=== PATIENT | male | born 1980 | race Hispanic/Latino ===

== ENCOUNTER 2018-04-08 01:51 | Emergency (ER) | payer OTHER ==
[2018-04-08 02:13] VITALS: BMI 26.4
[2018-04-08] MEDS ORDERED: Sodium Chloride 0.9% 1,000 ML IV STA (02:18)
--- NOTE | 2018-04-08 02:19 | ED PDOC ---
HPI: Abdomen Time Seen by Provider: 04/08/18 02:13 Chief Complaint (Nursing): Abdominal Pain Chief Complaint (Provider): testicular pain History Per: Patient Additional Complaint(s): 37-year-old male presents to emergency department with left testicular pain that started about 2 hours prior to arrival. Patient states the pain woke him up from his sleep. 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 Patient states it feels as if the left testicle is swollen and is very painful to touch. He denies fever or chills, no nausea or vomiting. PMD: none Past Medical History Reviewed: Historical Data, Nursing Documentation, Vital Signs Vital Signs: Last Vital Signs Temp 97.5 F L 04/08/18 02:10 Pulse 80 04/08/18 02:10 Resp 18 04/08/18 02:10 BP 118/75 04/08/18 02:10 Pulse Ox 100 04/08/18 03:40 - Medical History PMH: No Chronic Diseases - Surgical History Other surgeries: surgery for b/l testicular torsion - Family History Family History: States: No Known Family Hx - Living Arrangements Living Arrangements: With Family - Social History Current smoker - smoking cessation education provided: No Alcohol: None Drugs: Denies - Home Medications Home Medications: Ambulatory Orders Medication Instructions Recorded Ibuprofen [Motrin] 600 mg PO Q6 PRN #20 tab 04/08/18 - Allergies Allergies/Adverse Reactions: Allergies Allergy/AdvReac Type Severity Reaction Status Date / Time No Known Allergies Allergy Verified 04/08/18 02:13 Review of Systems ROS Statement: Except As Marked, All Systems Reviewed And Found Negative Constitutional: Negative for: Fever, Chills Respiratory: Negative for: Cough Gastrointestinal: Negative for: Nausea, Vomiting Genitourinary Male: Positive for: Scrotal Pain (left testicular pain and swelling) Physical Exam - Reviewed Nursing Documentation Reviewed: Yes Vital Signs Reviewed: Yes - Physical Exam Appears: Positive for: Well, Non-toxic, No Acute Distress Skin: Positive for: Normal Color. Negative for: Rash Eye Exam: Positive for: Normal appearance Cardiovascular/Chest: Positive for: Regular Rate, Rhythm Respiratory: Positive for: Normal Breath Sounds Gastrointestinal/Abdominal: Positive for: Tenderness (suprapubic). Negative for : Distended, Guarding, Rebound Male Genital Exam: Positive for: epididymal tenderness (left), scrotum tenderness (L), testicular tenderness (L). Negative for: no hernia, bleeding, urethral discharge Back: Positive for: Normal Inspection Extremity: Positive for: Normal ROM Neurologic/Psych: Positive for: Alert, Oriented - Laboratory Results Result Diagrams: 04/08/18 02:55 04/08/18 02:55 Urine dip results: Negative for: Leukocyte Esterase, Blood, Nitrate, Ketones, Glucose, Bilirubin, Protein - ECG O2 Sat by Pulse Oximetry: 100 Pulse Ox Interpretation: Normal - Other Rad Testes US X-Ray: Read By Radiologist X-Ray Interpretation: see below Medical Decision Making Medical Decision Makin37 year old with left testicular pain Plan: CBC CMP Urine dip IVF Testes US IV toradol US: FINDINGS: Right testicle: The right testicle is small compared to the left and without Doppler flow obtained in this patient with a chronic history of previous torsion and surgery. Left testicle: Unremarkable. No mass. No torsion. Epididymides: Unremarkable. Scrotum: There is a small varicocele on the left. Trace hydrocele on the left IMPRESSION: The right testicle is small compared to the left and without Doppler flow obtained in this patient with a chronic history of previous torsion and surgery. Left-sided varicocele is small. Trace hydrocele on the left. Patient is aware of all diagnostic testing results, all questions answered. Patient feels much better after Toradol dose was given. Patient given prescription for ibuprofen and he was referred to urology follow-up. Disposition - Clinical Impression Clinical Impression: Varicocele, Hydrocele - Patient ED Disposition Is Patient to be Admitted: No Counseled Patient/Family Regarding: Studies Performed, Diagnosis, Need For Followup, Rx Given - Disposition Referrals: Damián Jackson MD [Medical Doctor] - Disposition: Routine/Home Disposition Time: 04:49 Condition: STABLE Additional Instructions: Take prescription meds as directed as needed for pain. Avoid strenuous activity or heavy lifting. Follow-up with neurologist for any persistent symptoms or return to emergency room any time if acutely worse. Prescriptions: Ibuprofen [Motrin] 600 mg PO Q6 PRN #20 tab PRN Reason: Pain, Moderate (4-7) Instructions: Varicocele, Hydrocele, How to Perform a Testicular Self-Exam Forms: [employer] (Albanian) Results - Lab Results Lab Results: 04/08/18 04/08/18 02:55 02:55 WBC 9.5 RBC 4.53 Hgb 14.3 Hct 41.3 MCV 91.3 MCH 31.6 H MCHC 34.6 RDW 13.2 Plt Count 195 MPV 9.7 Neut % (Auto) 71.0 Lymph % (Auto) 21.7 Cowley % (Auto) 5.8 Eos % (Auto) 0.8 Baso % (Auto) 0.7 Neut # (Auto) 6.7 Lymph # (Auto) 2.1 Cowley # (Auto) 0.6 Eos # (Auto) 0.1 Baso # (Auto) 0.1 Sodium 142 Potassium 4.3 Chloride 104 Carbon Dioxide 26 Anion Gap 16 BUN 18 Creatinine 1.0 Est GFR ( Amer) > 60 Est GFR (Non-Af Amer) > 60 Random Glucose 106 Calcium 9.2 Total Bilirubin 0.5 AST 30 ALT 27 Alkaline Phosphatase 42 Total Protein 8.0 Albumin 4.5 Globulin 3.5 Albumin/Globulin Ratio 1.3
[2018-04-08 02:23] VITALS: BP 118/75; PULSE 80; RESP 18; TEMP 97.5; O2SAT 100
[2018-04-08 02:57] LABS: BASO # 0.1 K/uL (0.0-0.2); BASO % 0.7 % (0.0-2.0); EOS # 0.1 K/uL (0.0-0.7); EOS % 0.8 % (0.0-4.0); HEMOGLOBIN 14.3 g/dL (12.0-18.0); LYMPH # 2.1 K/uL (1.0-4.3); LYMPH % 21.7 % (20.0-40.0); MEAN CELL VOLUME 91.3 fl (80.0-94.0); MEAN CORPUSCULAR HEMOGLOBIN 31.6 pg (27.0-31.0); MEAN CORPUSCULAR HGB CONC 34.6 g/dL (33.0-37.0); MEAN PLATELET VOLUME 9.7 fl (7.2-11.7); MONO # 0.6 K/uL (0.0-0.8); MONO % 5.8 % (0.0-10.0); NEUT # 6.7 K/uL (1.8-7.0); RBC 4.53 Mil/uL (4.40-5.90); RED CELL DISTRIBUTION WIDTH 13.2 % (11.5-14.5); WHITE BLOOD COUNT 9.5 K/uL (4.8-10.8)
[2018-04-08 03:07] LABS: ALB/GLOB RATIO 1.3 (1.0-2.1); ALBUMIN 4.5 g/dL (3.5-5.0); ALT/SGPT 27 U/L (21-72); AST/SGOT 30 U/L (17-59); BLOOD UREA NITROGEN 18 mg/dl (9-20); CALCIUM 9.2 mg/dL (8.4-10.2); GFR AFRICAN-AMERICAN > 60; GFR NON-AFRICAN AMERICAN > 60
--- NOTE | 2018-04-08 11:51 | US ---
Date of service: 04/08/2018 HISTORY: Left testicular pain. Relevant medical history: Testicular torsion, right. TECHNIQUE: Realtime sonography through the scrotum with color and doppler flow. COMPARISON: None Available. FINDINGS: RIGHT TESTICLE: Measures 1.4 x 0.7 x 1.6 cm. Normal echotexture and flow. RIGHT EPIDIDYMIS: Not visualized. LEFT TESTICLE: Measures 3.3 x 2.2 x 4 cm. Normal echotexture and flow. LEFT EPIDIDYMIS: Epididymal head measures 0.7 x 1.6 x 1.4 cm. Grossly unremarkable appearance with normal flow. HYDROCELE: None. VARICOCELE: Unilateral, left varicocele. OTHER FINDINGS: None. 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 Unremarkable left testicle and epididymis.Left varicocele. Concordant results (preliminary interpretation) provided by [facility]. Procedure Completed: 03:50. Preliminary ([facility]) Report: Dictated and Authenticated: 04:37. Final Interpretation: 11:49. April 08, 2018.
== END 2018-04-08 05:02 | disposition home or self-care (01) ==
LOC: H.ER 01:51
DX: I86.1 Scrotal varices (principal); N43.3 Hydrocele, unspecified
CPT/HCPCS: 80053; 85025; 93975; 96374; 99283; J1885; J7030